=== PATIENT | male | born 1985 | race Two or more races ===

== ENCOUNTER 2024-10-14 06:16 | Emergency (ER) | payer OTHER ==
[~2024-10-14] VITALS: Ht 162.6 cm; Wt 59.0 kg
[2024-10-14 06:42] VITALS: TEMP 98.4
--- NOTE | 2024-10-14 07:09 | ED.PDOC ---
History of Present Illness HPI Comments 39-year-old male found in front of [address] altered being aggressive was brought by paramedics. Patient does use drugs. His past medical history does show uses fentanyl. Blood sugar on arrival was 73. He is not answering any questions just spitting. Unable to get a good history from the patient. Chief Complaint: Overdose Time Seen by MD: 06:35 Reviewed Notes: Nurses Notes, Medications, Allergies Information Source: Emergency Med Personnel Mode of Arrival: EMS Severity: Moderate Timing: Hours Duration: Since onset Past Medical History PAST MEDICAL HISTORY: Denies Surgical History: Denies all surgeries Social History Smoker: Cigarettes Alcohol: Heavy Drugs: Methamphetamine Unable to Obtain due to: Altered Mental Status Physical Exam General Appearance: No Apparent Distress, Normal HEENT: Normal ENT Inspection, Pharynx Normal, TMs Normal Neck: Full Range of Motion, Non-Tender, Normal, Normal Inspection Respiratory: Chest Non-Tender, Lungs Clear, No Accessory Muscle Use, No Respiratory Distress, Normal Breath Sounds Cardiovascular: No Edema, No JVD, No Murmur, No Gallop, Normal Peripheral Pulses, Regular Rate/Rhythm Breast Exam: Deferred Gastrointestinal: No Organomegaly, Non Tender, No Pulsatile Mass, Normal Bowel Sounds, Soft Genitalia: Deferred Pelvic: Deferred Rectal: Deferred Extremities: No calf tenderness, No pedal edema Musculoskeletal : Apperance: Normal Neurologic: Disoriented Cerebellar Function: NOT DONE Reflexes: NOT DONE Skin: Dry, Normal Color, Warm Peripheral Pulses: 3+ Radial (R), 3+ Radial (L) Lymphatic: No Adenopathy Was a procedure done? Was a procedure done?: No Differential Dx Considerations may include: Seizure Electrolyte imbalance X-Ray, Labs, Meds, VS Vital Signs Date Time Temp Pulse Resp B/P (MAP) Pulse Ox O2 Delivery O2 Flow Rate FiO2 10/14/24 06:42 98.4 104 18 146/86 100 98.4 Time of 1ST Reevaluation: 07:08 Reevaluation 1ST: Unchanged Patient Education/Counseling: Other (Aggressive) Family Education/Counseling: No Family Present SEPSIS Sepsis Screen Date sepsis recognized/suspect: Oct 14, 2024 Time Sepsis recognized/suspect: 614 Recent Procedure: No On Antibiotic Therapy: No Respiratory Rate >20: No Heart Rate >90: No Temp<36 C (96.8 F) or >38.3 C: No SBP <90 or MAP <65 mmHG: No New Acute Mental Status Change: No Is the patient on CPAP, BIPAP,: No Physician Orders Drug Screen (10/14/24 06:38) Sodium Chloride 0.9% (10/14/24 06:45) Blood Alcohol (10/14/24 06:38) Vital Signs Date Time Temp Pulse Resp B/P (MAP) Pulse Ox O2 Delivery O2 Flow Rate FiO2 10/14/24 06:42 98.4 104 18 146/86 100 98.4 Departure 1 Departure Time of Disposition: 07:08 Impression: Primary Impression: Metabolic encephalopathy Additional Impression: Drug use Disposition: 30 STILL A PATIENT Condition: Good Discharged With: Self Critical Care Note Critical Care Time?: Yes (90 min-critical care time only) Stability Stability form required: No Heart Score Heart Score: Heart Score Response (Comments) Value History N/A 0 EKG N/A 0 Age N/A 0 Risk Factors N/A 0 Troponin N/A 0 Total 0 FIORDALIZA ARIZA MD Oct 14, 2024 07:09
[2024-10-14 07:30] VITALS: BP 116/66
[2024-10-14 07:44] VITALS: PULSE 88; RESP 14; O2SAT 100
[2024-10-14] MEDS: SODIUM CHLORIDE 0.9% 1,000 ML IV ONE (10:22)
[2024-10-14 11:20] LABS: Amphetamine Screen, Urine Pos (NEGATIVE); Barbiturate Scree,Urine Neg (NEGATIVE); Benzodiazephine Screen, Urine Neg (NEGATIVE); Cannabinoid Screen, Urine Neg (NEGATIVE); Cocaine Screen, Urine Neg (NEGATIVE); Opiate Scree,Urine Neg (NEGATIVE); Phencyclidine Screen, Urine Neg (NEGATIVE)
[2024-10-14] MEDS ORDERED: SODIUM CHLORIDE 0.9% 2,000 ML IV ONE (12:30)
== END 2024-10-14 16:07 | disposition left against medical advice (07) ==
LOC: ER 06:16 → EDBD 06:16 → ER 16:07
DX: G93.41 Metabolic encephalopathy (principal); R11.2 Nausea with vomiting, unspecified; F17.210 Nicotine dependence, cigarettes, uncomplicated; F19.90 Other psychoactive substance use, unspecified, uncomplicated; Z79.899 Other long term (current) drug therapy
CPT/HCPCS: 36415; 80307; 80320; 99291